=== PATIENT | male | born 1935 | race Caucasian/White ===

== ENCOUNTER 2017-10-21 09:17 | Outpatient (CLI) | payer OTHER | END 2017-10-21 14:06 | disposition home or self-care (01) | LOC: MRI 09:17 | DX: M54.15 Radiculopathy, thoracolumbar region (principal); M16.0 Bilateral primary osteoarthritis of hip | CPT/HCPCS: 72148; 73721 ==

== ENCOUNTER 2017-10-22 11:44 | Outpatient (CLI) | payer OTHER | END 2017-10-22 17:18 | disposition home or self-care (01) | LOC: RAD 11:44 | DX: M54.5 Low back pain (principal) ==